=== PATIENT | male | born 1970 | race Two or more races ===

== ENCOUNTER 2024-10-31 04:49 | Emergency (ER) | payer OTHER ==
[~2024-10-31] VITALS: Ht 175.3 cm; Wt 79.4 kg
[2024-10-31] MEDS ORDERED: NORVASC5 MG PO (04:57)
[2024-10-31] MEDS ORDERED: METFORMIN HCL500 M3 (04:57)
[2024-10-31] MEDS ORDERED: COZAAR100 MG PO (04:57)
[2024-10-31 08:00] LABS: ALBUMIN 4.1 gm/dL (3.4-5.0); BILIRUBIN TOTAL 0.71 mg/dL (0.3-1.2); CREATININE SERUM 0.84 mg/dL (0.70-1.30); GFR 96.33; GLOBULINA 3.6 G/DL (2.4-3.5); POTASSIUM 3.92 mEq/L (3.5-5.1); TOTAL PROTEIN 7.7 gm/dL (6.4-8.2)
[2024-10-31 08:15] LABS: BASO % 0.2 % (0.1-1.2); EOS # 0.31 (0.04-0.54); EOS % 2.3 % (0.7-7.0); HEMATOCRIT 41.5 % (40.1-51.0); HEMOGLOBIN 14.8 g/dL (13.7-17.5); LYMPH # 1.33 (1.18-3.74); LYMPH % 9.9 % (19.3-53.1); MEAN CORPUSCULAR HEMOGLOBIN 31.4 pg (25.6-32.2); MONO # 1.12 (0.24-0.82); MONO % 8.3 % (4.7-12.5); NEUT # 10.66 (1.56-6.13); NEUT % 78.9 % (34.0-71.1); PLATELET COUNT 268 K/uL (163-369); RED BLOOD COUNT 4.72 M/uL (4.63-6.08); RED CELL DISTRIBUTION WIDTH 12.4 % (11.6-14.4)
[2024-10-31] MEDS ORDERED: KETOROLAC TROMETHAMINE 30 MG VIAL IV ONE (10:15)
[2024-10-31] MEDS ORDERED: KETOROLAC TROMETHAMINE 30 MG VIAL ONE (10:28)
[2024-10-31 11:46] LABS: ALT/SGPT 67 U/L (12-78); AST/SGOT 27 U/L (15-37); LDH 134 U/L (87-241); PHOSPHOKINASE CREATININE 87 U/L (39-308)
[2024-10-31 11:49] LABS: proBNP 21 pg/mL (0-39)
[2024-10-31 11:55] LABS: TROPONIN I hs < 3.0 PG/ML (42.2-82.3)
== END 2024-10-31 14:12 | disposition home or self-care (01) ==
LOC: ER 06:00
PROVIDERS: Emergency Medicine
DX: F41.9 Anxiety disorder, unspecified (principal); R07.89 Other chest pain; I10 Essential (primary) hypertension; E11.9 Type 2 diabetes mellitus without complications; Z79.84 Long term (current) use of oral hypoglycemic drugs